=== PATIENT | male | born 1940 | race Caucasian/White ===

== ENCOUNTER → 2024-11-24 | Outpatient (CLI) | payer OTHER ==
[~2024-11-24] VITALS: Ht 188 cm; Wt 89.7 kg
[~2024-11-24] MED LIST: ADAL40SY SQ; AMLO-258 PO; CARV6.25 PO; CELE200 PO; CETI10TA57 PO; CHOL100046 PO; CINN500C PO; CYAN-37 PO; DOCU100C33 PO; EMPA25TA PO; HYDR25TA PO; IRBE300T26 PO; MULT-1367 PO; OMEG100033 PO; PSYL0.4C2 PO; ROSU10TA72 PO; UBID100C10 PO
[2024-11-24 09:54] LABS: BASOPHILS # (AUTO) 0.03 K/uL (0.00-0.20); BASOPHILS % (AUTO) 0.6 % (0.0-5.0); EOSINOPHILS # (AUTO) 0.16 K/uL (0.00-0.70); EOSINOPHILS % (AUTO) 3.3 % (0.0-8.0); HEMATOCRIT 43.3 % (42-54); IMMATURE GRANULOCYTE ABSOLUTE 0.01 K/uL (0-1); LYMPHOCYTES # (AUTO) 1.8 K/uL (1.0-4.8); LYMPHOCYTES % (AUTO) 38.5 % (21.0-51.0); MEAN CORPUSCULAR HGB CONC 33.9 g/dL (32.0-36.0); MEAN CORPUSCULAR VOLUME 94.3 fL (79-99); MONOCYTES # (AUTO) 0.4 K/uL (0.1-1.0); MONOCYTES % (AUTO) 8.8 % (3.0-13.0); NEUTROPHILS # (AUTO) 2.3 K/uL (1.8-7.7); NEUTROPHILS % (AUTO) 48.6 % (40.0-77.0); PLATELET COUNT (AUTO) 100 K/uL (130-400); RED BLOOD CELL COUNT(AUTO) 4.59 MIL/uL (4.50-6.20); RED CELL DISTRIBUTION WIDTH 13.9 % (11.0-15.5); WHITE BLOOD COUNT (AUTO) 4.8 K/uL (4.8-10.8)
[2024-11-24 10:04] LABS: INR 1.08 (0.85-1.15); PROTHROMBIN TIME 11.4 SEC (9.6-11.6)
[2024-11-24 10:05] LABS: PARTIAL THROMBOPLASTIN TIME 27.4 SEC (26.3-35.5)
[2024-11-24 10:07] VITALS: BP 134/65; PULSE 78; RESP 18; TEMP 96.8
[2024-11-24 10:08] LABS: CREATININE 1.2 mg/dL (0.5-1.3)
--- NOTE | 2024-11-24 13:23 | EKG ---
[facility] Test Date: 2024-11-24 Test Time: 09:50:35 Pat Name: REYNA CARRANZA Department: [facility] Room: Gender: M Local Telephone Operator: [id number] : 1940 Requested By: JAIME GUERRERO Order Number: [id number] Reading MD: Christine Ball Measurements Intervals [place] Rate: 66 P: 0 VA: 140 QRS: -66 QRSD: 192 T: 105 QT: 474 QTc: 499 Interpretive Statements Atrial-ventricular dual-paced rhythm No previous ECG available for comparison Electronically Signed On 11-24-2024 14:49:16 CDT by Christine Ball Please click the below link to view image of tracing.
== END | disposition home or self-care (01) ==
LOC: EDSTATUS 09:00 → DAH 09:00
PROVIDERS: ATTEND Internal Medicine Cardiovascular Disease
DX: Z01.818 Encounter for other preprocedural examination (principal); Z45.010 Encounter for checking and testing of cardiac pacemaker pulse generator [battery]; R55 Syncope and collapse
CPT/HCPCS: 36415; 80048; 85025; 85610; 85730; 93005

== ENCOUNTER 2024-12-05 09:17 | Day surgery (SDC) | payer OTHER ==
[2024-12-01 10:00] VITALS: BP 126/66; PULSE 77; RESP 18; TEMP 97.4
[~2024-12-05] VITALS: Ht 188 cm; Wt 88.8 kg
[2024-12-05 09:25] VITALS: BP 106/56; PULSE 84; RESP 17; TEMP 97.3
[2024-12-05] MEDS: 0.9%NACL 1000ML 1,000 ML IV SCH (10:03)
[2024-12-05] MEDS ORDERED: SODIUM BICARB 50MEQ 50ML VIAL 50 ML ONE (15:51)
[2024-12-05] MEDS ORDERED: LIDOCAINE HCL 1% MDV 50ML VIAL ONE (15:51)
[2024-12-05] MEDS ORDERED: BUPIvacaine/PF 0.25% 30ML VIAL IJ ONE (15:51)
[2024-12-05] MEDS ORDERED: ceFAZolin SODIUM 1 GM VIAL ONE (15:52)
[2024-12-05] MEDS ORDERED: MIDAZOLAM HCL 1 MG/ML 2ML VIAL ONE ×2 (16:06→16:41)
[2024-12-05] MEDS ORDERED: FENTanyl CITRate PF 50 MCG/1 ML 2ML VIAL ONE (16:06)
[2024-12-05] MEDS ORDERED: IOHEXOL-350 50ML VIAL IV ONE (16:53)
[2024-12-05] MEDS ORDERED: BACITRACIN 1 EACH PACKET TP ONE (17:44)
[2024-12-05] MEDS ORDERED: TRAM50TA4 PO (17:56)
[2024-12-05] MEDS ORDERED: acetaMINOPHEN 500 MG TABLET PO PRN (18:00)
[2024-12-05] MEDS ORDERED: acetaMINOPHEN WITH coDEINE 1 TAB TAB PO PRN ×2 (18:00→18:30)
[2024-12-05 18:30] VITALS: BP 139/55; PULSE 61; RESP 12; TEMP 97.7
[2024-12-05 18:45] VITALS: BP 141/57; PULSE 60; RESP 16
[2024-12-05 19:00] VITALS: BP 148/65; PULSE 60; RESP 20
[2024-12-05 19:15] VITALS: BP 146/67; PULSE 60; RESP 14
[2024-12-05 19:30] VITALS: BP 144/62; PULSE 60; RESP 16
--- NOTE | 2024-12-05 19:37 | NUR ---
Full and complete discharge instructions given to Patient and Family both verbally and in writing. Explained SURGICAL PPM procedure precautions and follow up. PPM site clean, dry and intact. No evidence of bleeding, bruising or hematoma.Sling intact. PPM device card given to and she placed it in her wallet at bedside. Both Patient and voiced understanding to sling use and dressing changes. will call to confirm follow up at device clinic in 10-12 days as office is closed. All questions answered. CXR sent to Dr Cottrell for clearance to discharge. Pending return call. Addendum: 12/05/24 at 1957 by BENITO GOLDBERG RN RN Dr Cottrell stated cleared for discharge. PIV removed.with catheter tip intact. W/C to pov with Family.
--- NOTE | 2024-12-06 12:38 | HMCIMG ---
CHEST 1VW REASON: s/p [employer] upgrade COMPARISON: None. FINDINGS: Single view of the chest was obtained. Lungs are clear. Heart size is normal. There is no pulmonary vascular congestion. Mediastinum and bony thorax appear unremarkable. There is a pacemaker in place. There is no evidence of pneumothorax. IMPRESSION: 1. Pacemaker in place, no evidence of pneumothorax.
== END 2024-12-05 20:00 | disposition home or self-care (01) ==
LOC: DAH 09:17
PROVIDERS: ATTEND Internal Medicine Cardiovascular Disease
DX: Z45.010 Encounter for checking and testing of cardiac pacemaker pulse generator [battery] (principal); I44.2 Atrioventricular block, complete; I11.0 Hypertensive heart disease with heart failure; I50.22 Chronic systolic (congestive) heart failure; I44.1 Atrioventricular block, second degree; G47.33 Obstructive sleep apnea (adult) (pediatric); M19.90 Unspecified osteoarthritis, unspecified site; Z90.89 Acquired absence of other organs; Z79.899 Other long term (current) drug therapy; Z98.890 Other specified postprocedural states; Z82.49 Family history of ischemic heart disease and other diseases of the circulatory system
CPT/HCPCS: 33229; 33225; 82948; 71045; C1769; C2621; C1900; J3010; J0690; J7030; J0665; J3490 ×2; J2250 ×2; Q9967; 99156; 99157